=== PATIENT | male | born 1985 | race Caucasian/White ===

== ENCOUNTER 2022-04-14 16:04 | Inpatient (IN) | payer BC ==
[2022-04-14 20:06] LABS: Appearance,Urine Clear (Clear); Bilirubin,Urine Negative (Negative); Blood,Urine Negative (Negative); Color,Urine Yellow; Glucose,Urine (UA) Negative (Negative); Ketones,Urine Negative (Negative); Leukocyte Esterase,Urine Negative (Negative); Nitrite,Urine Negative (Negative); Protein,Urine Negative (Negative); Specific Gravity,Urine 1.013 (1.001-1.035); Urobilinogen,Urine <2.0 mg/dL (<2.0)
[2022-04-14 20:07] LABS: Basophils # (A) 0.1 k/uL (0-0.2); Basophils % (A) 0 %; Eosinophils # (A) 0.2 k/uL (0-0.7); Eosinophils % (A) 1 %; HCT 50.3 % (39.0-53.0); HGB 17.4 gm/dL (13.0-17.5); Lymphocytes # (A) 2.9 k/uL (1.0-4.8); Lymphocytes % (A) 18 %; MCH 34.1 pg (25.0-35.0); MCHC 34.6 g/dL (31.0-37.0); MCV 98.5 fL (80.0-100.0); Mean Platelet Volume 7.4; Monocytes # (A) 0.5 k/uL (0-1.0); Monocytes % (A) 3 %; Neutrophils # (A) 12.4 k/uL (1.3-7.7); Neutrophils % (A) 76 %; Platelet Count 330 k/uL (150-450); RDW 12.5 % (11.5-15.5); WBC 16.2 k/uL (3.8-10.6)
[2022-04-14 20:15] LABS: Amphetamine Screen,Urine Not Detected (NotDetected); Barbiturate Screen,Urine Not Detected (NotDetected); Benzodiazepines Screen,Urine Not Detected (NotDetected); Cocaine Screen,Urine Not Detected (NotDetected); Methadone Screen, Urine Not Detected (NotDetected); Opiate Screen,Urine Not Detected (NotDetected); Oxycodone Screen, Urine Not Detected (NotDetected); Phencyclidine Screen,Urine Not Detected (NotDetected); Tricyclic Antidepressant,Urine Not Detected (NotDetected); Urn Cannabinoid Scrn Detected (NotDetected)
[2022-04-14 20:19] LABS: Albumin 5.4 g/dL (3.5-5.0); Potassium 4.3 mmol/L (3.5-5.1); Total Bilirubin 1.5 mg/dL (0.2-1.3); Total Protein 8.8 g/dL (6.3-8.2)
--- NOTE | 2022-04-14 20:21 | ED ---
Psych HPI - General Source: patient Mode of arrival: ambulatory <Catherine Mao - Last Filed: 04/15/22 00:54> <Rudy Adam - Last Filed: 04/15/22 04:45> - General Chief Complaint: Psychiatric Symptoms Stated Complaint: Petition Time Seen by Provider: 04/14/22 19:10 - History of Present Illness Initial Comments: 36-year-old male with past medical history of bipolar disorder, schizophrenia, PTSD who presents to the emergency department for depression and suicidal ideations. Police were called to the patient's house where he was reporting that he was extremely depressed because his was found cheating on him last night. He told police that he was depressed and suicidal. Police were highly considered as the patient is a therefore brought him into the emergency room for evaluation. Patient is agreeable that he made these comments. He denies any drug or alcohol use. He is a patient with [facility] and follows with them every Friday. He has medications that he is supposed to take however he reports he only takes them when he needs them. States he has not taken them in several weeks. He denies attempting to harm himself. No homicidal ideations. No hallucinations. No other alleviating, precipitating or modifying factors (Catherine Mao) - Related Data Allergies Allergy/AdvReac Type Severity Reaction Status Date / Time morphine Allergy Unknown Verified 04/14/22 16:43 Review of Systems ROS Other: All systems not noted in ROS Statement are negative. <Catherine Mao - Last Filed: 04/15/22 00:54> ROS Other: All systems not noted in ROS Statement are negative. <Rudy Adam - Last Filed: 04/15/22 04:45> ROS Statement: Those systems with pertinent positive or pertinent negative responses have been documented in the HPI. Past Medical History Additional Past Medical History / Comment(s): vertigo History of Any Multi-Drug Resistant Organisms: None Reported Additional Past Surgical History / Comment(s): finger surgery Past Psychological History: Depression, PTSD Smoking Status: Never smoker Past Alcohol Use History: None Reported Past Drug Use History: None Reported <Catherine Mao - Last Filed: 04/15/22 00:54> General Exam Limitations: no limitations General appearance: alert, in no apparent distress Head exam: Present: atraumatic, normocephalic, normal inspection Eye exam: Present: normal appearance, PERRL, EOMI. Absent: scleral icterus, conjunctival injection, periorbital swelling ENT exam: Present: normal exam, mucous membranes moist Neck exam: Present: normal inspection. Absent: tenderness, meningismus, lymphad enopathy Respiratory exam: Present: normal lung sounds bilaterally. Absent: respiratory distress, wheezes, rales, rhonchi, stridor Cardiovascular Exam: Present: regular rate, normal rhythm, normal heart sounds. Absent: systolic murmur, diastolic murmur, rubs, gallop, clicks GI/Abdominal exam: Present: soft, normal bowel sounds. Absent: distended, tenderness, guarding, rebound, rigid Extremities exam: Present: normal inspection, full ROM, normal capillary refill. Absent: tenderness, pedal edema, joint swelling, calf tenderness Back exam: Present: normal inspection Neurological exam: Present: alert, oriented X3, CN II-XII intact Psychiatric exam: Present: depressed Skin exam: Present: warm, dry, intact, normal color. Absent: rash <Catherine Mao - Last Filed: 04/15/22 00:54> Course Vital Signs 04/14/22 04/15/22 04/15/22 16:35 03:26 04:15 Temperature 97.7 F 97.7 F Pulse Rate 86 86 70 Respiratory 16 20 20 Rate Blood Pressure 188/110 141/111 145/86 O2 Sat by Pulse 96 96 96 Oximetry Medical Decision Making - Lab Data Result diagrams: 04/14/22 20:02 04/14/22 20:02 <Catherine Mao - Last Filed: 04/15/22 00:54> - Lab Data Result diagrams: 04/14/22 20:02 04/14/22 20:02 - EKG Data -: EKG Interpreted by In <Rudy Adam - Last Filed: 04/15/22 04:45> - Medical Decision Making Upon arrival, patient placed into room 16. Thorough history and physical exam was performed. Patient does admit to suicidal ideations. He is accompanied by police and is petitions. Because he is a his labs are drawn. Spoke with EPS. Patient will likely be admitted for psychiatric services (Catherine Mao) Patient will be going to the [facility] after evaluation by EPS for inpatient psychiatry. Certification was completed by myself. (Rudy Adam) - Lab Data Lab Results 04/14/22 04/14/22 04/14/22 Range/Units 20:02 20:02 20:02 WBC 16.2 H (3.8-10.6) k/uL RBC 5.10 (4.30-5.90) m/uL Hgb 17.4 (13.0-17.5) gm/dL Hct 50.3 (39.0-53.0) % MCV 98.5 (80.0-100.0) fL MCH 34.1 (25.0-35.0) pg MCHC 34.6 (31.0-37.0) g/dL RDW 12.5 (11.5-15.5) % Plt Count 330 (150-450) k/uL MPV 7.4 Neutrophils % 76 % Lymphocytes % 18 % Monocytes % 3 % Eosinophils % 1 % Basophils % 0 % Neutrophils # 12.4 H (1.3-7.7) k/uL Lymphocytes # 2.9 (1.0-4.8) k/uL Monocytes # 0.5 (0-1.0) k/uL Eosinophils # 0.2 (0-0.7) k/uL Basophils # 0.1 (0-0.2) k/uL Sodium 140 (137-145) mmol/L Potassium 4.3 (3.5-5.1) mmol/L Chloride 100 (98-107) mmol/L Carbon Dioxide 27 (22-30) mmol/L Anion Gap 13 mmol/L BUN 17 (9-20) mg/dL Creatinine 1.22 (0.66-1.25) mg/dL Est GFR (CKD-EPI)AfAm 87 (>60 ml/min/1.73 sqM) Est GFR (CKD-EPI)NonAf 75 (>60 ml/min/1.73 sqM) Glucose 107 H (74-99) mg/dL Calcium 10.0 (8.4-10.2) mg/dL Total Bilirubin 1.5 H (0.2-1.3) mg/dL AST 35 (17-59) U/L ALT 35 (4-49) U/L Alkaline Phosphatase 101 (38-126) U/L Total Protein 8.8 H (6.3-8.2) g/dL Albumin 5.4 H (3.5-5.0) g/dL Urine Color Yellow Urine Appearance Clear (Clear) Urine pH 6.0 (5.0-8.0) Ur Specific [place] 1.013 (1.001-1.035) Urine Protein Negative (Negative) Urine Glucose (UA) Negative (Negative) Urine Ketones Negative (Negative) Urine Blood Negative (Negative) Urine Nitrite Negative (Negative) Urine Bilirubin Negative (Negative) Urine Urobilinogen <2.0 (<2.0) mg/dL Ur Leukocyte Esterase Negative (Negative) Urine Opiates Screen Not Detected (NotDetected) Ur Oxycodone Screen Not Detected (NotDetected) Urine Methadone Screen Not Detected (NotDetected) Ur Propoxyphene Screen Not Detected (NotDetected) Ur Barbiturates Screen Not Detected (NotDetected) U Tricyclic Antidepress Not Detected (NotDetected) Ur Phencyclidine Scrn Not Detected (NotDetected) Ur Amphetamines Screen Not Detected (NotDetected) U Methamphetamines Scrn Not Detected (NotDetected) U Benzodiazepines Scrn Not Detected (NotDetected) Urine Cocaine Screen Not Detected (NotDetected) U Marijuana (THC) Screen Detected H (NotDetected) Coronavirus (PCR) (Not Detectd) 04/14/22 Range/Units 20:12 WBC (3.8-10.6) k/uL RBC (4.30-5.90) m/uL Hgb (13.0-17.5) gm/dL Hct (39.0-53.0) % MCV (80.0-100.0) fL MCH (25.0-35.0) pg MCHC (31.0-37.0) g/dL RDW (11.5-15.5) % Plt Count (150-450) k/uL MPV Neutrophils % % Lymphocytes % % Monocytes % % Eosinophils % % Basophils % % Neutrophils # (1.3-7.7) k/uL Lymphocytes # (1.0-4.8) k/uL Monocytes # (0-1.0) k/uL Eosinophils # (0-0.7) k/uL Basophils # (0-0.2) k/uL Sodium (137-145) mmol/L Potassium (3.5-5.1) mmol/L Chloride (98-107) mmol/L Carbon Dioxide (22-30) mmol/L Anion Gap mmol/L BUN (9-20) mg/dL Creatinine (0.66-1.25) mg/dL Est GFR (CKD-EPI)AfAm (>60 ml/min/1.73 sqM) Est GFR (CKD-EPI)NonAf (>60 ml/min/1.73 sqM) Glucose (74-99) mg/dL Calcium (8.4-10.2) mg/dL Total Bilirubin (0.2-1.3) mg/dL AST (17-59) U/L ALT (4-49) U/L Alkaline Phosphatase (38-126) U/L Total Protein (6.3-8.2) g/dL Albumin (3.5-5.0) g/dL Urine Color Urine Appearance (Clear) Urine pH (5.0-8.0) Ur Specific [place] (1.001-1.035) Urine Protein (Negative) Urine Glucose (UA) (Negative) Urine Ketones (Negative) Urine Blood (Negative) Urine Nitrite (Negative) Urine Bilirubin (Negative) Urine Urobilinogen (<2.0) mg/dL Ur Leukocyte Esterase (Negative) Urine Opiates Screen (NotDetected) Ur Oxycodone Screen (NotDetected) Urine Methadone Screen (NotDetected) Ur Propoxyphene Screen (NotDetected) Ur Barbiturates Screen (NotDetected) U Tricyclic Antidepress (NotDetected) Ur Phencyclidine Scrn (NotDetected) Ur Amphetamines Screen (NotDetected) U Methamphetamines Scrn (NotDetected) U Benzodiazepines Scrn (NotDetected) Urine Cocaine Screen (NotDetected) U Marijuana (THC) Screen (NotDetected) Coronavirus (PCR) Not Detected (Not Detectd) - EKG Data EKG Comments: 12-lead Electrocardiogram Interpretation Note EKG was reviewed and interpreted by myself. 12-lead ECG performed at 0438 is interpreted by me as revealing normal sinus rhythm at a rate of 64 beats per minute. [place] is normal. MA interval is 195 ms, QRS duration is 101 ms, QTc is 394 ms.. There were no ST or T wave abnormalities to suggest myocardial ischemia or injury. R wave progression across the precordium was satisfactory. By my interpretation this EKG is non-diagnostic for acute ischemia. (Rudy Adam) Disposition <Catherine Mao - Last Filed: 04/15/22 00:54> Is patient prescribed a controlled substance at d/c from ED?: No <Rudy Adam - Last Filed: 04/15/22 04:45> Clinical Impression: Suicidal ideation, Depression Disposition: TRANSFER TO PSYCH HOSP/UNIT Condition: Stable Referrals: None,Stated [Primary Care Provider] - 1-2 days
--- NOTE | 2022-04-15 00:45 | XR ---
EXAMINATION TYPE: XR chest 2V DATE OF EXAM: 04/15/2022 COMPARISON: NONE HISTORY: Chest pain TECHNIQUE: 2 views FINDINGS: Heart and mediastinum are normal. Lungs are clear. Diaphragm is normal. Bony thorax appears normal. IMPRESSION: Normal chest.
[2022-04-15] MEDS ORDERED: ACETAMINOPHEN TAB 500 MG TAB PO PRN (18:24)
[2022-04-15] MEDS ORDERED: MECLIZINE 25 MG TAB PO PRN (18:24)
[2022-04-15] MEDS ORDERED: MAGNESIUM HYDROXIDE 2,400 MG/10 ML CUP PO PRN (18:24)
[2022-04-15] MEDS ORDERED: MAG HYDROX/AL HYDROX/SIMETH 30 ML CUP PO PRN (18:24)
[2022-04-15] MEDS ORDERED: LORazepam 2 MG/ML INJ IM PRN (18:31)
[2022-04-15] MEDS ORDERED: chlorproMAZINE 25 MG/ML 2 ML AMP IM PRN (18:31)
[2022-04-15] MEDS ORDERED: chlorproMAZINE 25 MG TAB PO PRN (18:31)
[2022-04-15] MEDS: LORazepam 1 MG TAB PO PRN (20:14)
[2022-04-15] MEDS: QUEtiapine 100 MG TAB PO SCH (21:18)
[2022-04-16] MEDS: CITALOPRAM HYDROBROMIDE 10 MG TAB PO SCH (08:33)
[2022-04-16] MEDS: QUEtiapine 100 MG TAB PO SCH (20:56)
--- NOTE | 2022-04-17 07:04 | P.MDCNMH ---
History of Present Illness H&P Date: 04/16/22 Chief Complaint: Depression and suicidal ideation 36-year-old male no significant past medical history Patient brought into the hospital by police due to depression and suicidal ideation after finding out that his was cheating on him. Patient otherwise denies any fevers or chills denies any coughing or upper respiratory infection symptoms denies any chest pain or shortness of breath denies any abdominal pain nausea vomiting or changes in his bowel or urinary habits denies any GI bleeding denies any focal neuro deficits. Patient denies tobacco smoking, illicit drugs, or alcohol Review of Systems Pertinent positives as noted in HPI. All other systems were reviewed and are negative Past Medical History Additional Past Medical History / Comment(s): vertigo History of Any Multi-Drug Resistant Organisms: None Reported Additional Past Surgical History / Comment(s): finger surgery Past Psychological History: Depression, PTSD Smoking Status: Never smoker Past Alcohol Use History: None Reported Past Drug Use History: None Reported - Past Family History Family Additional Family Medical History / Comment(s): History of lung cancer in his father Medications and Allergies Home Medications Medication Instructions Recorded Confirmed Type Acetaminophen Tab [Tylenol Tab] 1,000 mg PO Q6HR PRN 04/15/22 04/15/22 History Citalopram Hydrobromide 10 mg PO DAILY 04/15/22 04/15/22 History [Citalopram HBr] Meclizine [Antivert] 25 mg PO TID PRN 04/15/22 04/15/22 History QUEtiapine [SEROquel] 100 mg PO HS 04/15/22 04/15/22 History Allergies Allergy/AdvReac Type Severity Reaction Status Date / Time morphine Allergy Unknown Verified 04/15/22 12:09 Physical Exam Constitutional: No acute distress, conversant, pleasant Eyes: Anicteric sclerae, moist conjunctiva, Pupils equal round reactive to light ENMT: NC/AT Oropharynx clear, no erythema, or exudates Neck: Supple, FROM, no masses, or JVD No carotid bruits No thyromegaly Lungs: Clear to auscultation Clear to percussion Normal respiratory effort, no accessory muscle use Cardiovascular: Heart regular in rate and rhythm, No murmurs, gallops, or rubs No peripheral edema Abdominal: Soft Nontender, no guarding, rebound or rigidity Abdomen moving with respiration Normoactive bowel sounds No hepatomegaly, No splenomegaly No palpable mass No abdominal wall hernia noted Skin: Normal temperature, tone, texture, turgor No induration No subcutaneous nodules No rash, lesions No ulcers Extremities: No digital cyanosis No clubbing Pedal pulses intact and symmetrical Radial pulses intact and symmetrical No calf tenderness Psychiatric: Alert and oriented to person, place and time Depressed affect fair judgement Neuro Muscles Strength 5/5 in all 4 extremities Sensation to light touch grossly present throughout Cranial nerves II-XII grossly intact No focal sensory deficits Lymphatics: no palpable cervical or supraclavicular , or inguinal lymph nodes Cranial Nerve Examination - Cranial Nerves Cranial Nerve II- Optic: Intact Cranial Nerve III- Oculomotor: Intact Cranial Nerve IV- Trochlear: Intact Cranial Nerve V- Trigeminal: Intact Cranial Nerve - Abducens: Intact Cranial Nerve VII- Facial: Intact Cranial Nerve VIII- Auditory: Intact Cranial Nerve IX- Glossopharyngeal: Intact Cranial Nerve X- Vagus: Intact Cranial Nerve XI- Accessory: Intact Cranial Nerve XII- Hypoglossal: Intact Results CBC & Chem 7: 04/14/22 20:02 04/14/22 20:02 Assessment and Plan Assessment: Depression suicidal ideation Management per psych Leukocytosis No identifiable source of infection Monitor vital signs Chest x-ray no acute pathology EKG normal sinus rhythm Patient stable from medical standpoint Labs reviewed Thank you for allowing us to participate in the care of this patient. We will follow peripherally. Do not hesitate to contact us with questions. Someone can be reached from the [facility] hospitalist group at all hours of the day at [phone].
[2022-04-17 07:15] VITALS: BP 111/60; PULSE 79; RESP 16; TEMP 97
[2022-04-17] MEDS: CITALOPRAM HYDROBROMIDE 10 MG TAB PO SCH (08:26)
--- NOTE | 2022-04-17 11:51 | P.HP ---
Psychiatric H&P - . H&P Date: 04/17/22 History & Physical: Allergies Allergy/AdvReac Type Severity Reaction Status Date / Time morphine Allergy Unknown Verified 04/15/22 12:09 Vital Signs Temp 97 F L 04/17/22 06:59 Pulse 79 04/17/22 06:59 Resp 16 04/17/22 06:59 BP 111/60 04/17/22 06:59 Pulse Ox 98 04/17/22 06:59 FiO2 Laboratory Last Values WBC 16.2 k/uL (3.8-10.6) H 04/14/22 20:02 RBC 5.10 m/uL (4.30-5.90) 04/14/22 20:02 Hgb 17.4 gm/dL (13.0-17.5) 04/14/22 20:02 Hct 50.3 % (39.0-53.0) 04/14/22 20:02 MCV 98.5 fL (80.0-100.0) 04/14/22 20:02 MCH 34.1 pg (25.0-35.0) 04/14/22 20:02 MCHC 34.6 g/dL (31.0-37.0) 04/14/22 20:02 RDW 12.5 % (11.5-15.5) 04/14/22 20:02 Plt Count 330 k/uL (150-450) 04/14/22 20:02 MPV 7.4 04/14/22 20:02 Neutrophils % 76 % 04/14/22 20:02 Lymphocytes % 18 % 04/14/22 20:02 Monocytes % 3 % 04/14/22 20:02 Eosinophils % 1 % 04/14/22 20:02 Basophils % 0 % 04/14/22 20:02 Neutrophils # 12.4 k/uL (1.3-7.7) H 04/14/22 20:02 Lymphocytes # 2.9 k/uL (1.0-4.8) 04/14/22 20:02 Monocytes # 0.5 k/uL (0-1.0) 04/14/22 20:02 Eosinophils # 0.2 k/uL (0-0.7) 04/14/22 20:02 Basophils # 0.1 k/uL (0-0.2) 04/14/22 20:02 Sodium 140 mmol/L (137-145) 04/14/22 20:02 Potassium 4.3 mmol/L (3.5-5.1) 04/14/22 20:02 Chloride 100 mmol/L (98-107) 04/14/22 20:02 Carbon Dioxide 27 mmol/L (22-30) 04/14/22 20:02 Anion Gap 13 mmol/L 04/14/22 20:02 BUN 17 mg/dL (9-20) 04/14/22 20:02 Creatinine 1.22 mg/dL (0.66-1.25) 04/14/22 20:02 Est GFR (CKD-EPI)AfAm 87 (>60 ml/min/1.73 sqM) 04/14/22 20:02 Est GFR (CKD-EPI)NonAf 75 (>60 ml/min/1.73 sqM) 04/14/22 20:02 Glucose 107 mg/dL (74-99) H 04/14/22 20:02 Calcium 10.0 mg/dL (8.4-10.2) 04/14/22 20:02 Total Bilirubin 1.5 mg/dL (0.2-1.3) H 04/14/22 20:02 AST 35 U/L (17-59) 04/14/22 20:02 ALT 35 U/L (4-49) 04/14/22 20:02 Alkaline Phosphatase 101 U/L (38-126) 04/14/22 20:02 Total Protein 8.8 g/dL (6.3-8.2) H 04/14/22 20:02 Albumin 5.4 g/dL (3.5-5.0) H 04/14/22 20:02 Urine Color Yellow 04/14/22 20:02 Urine Appearance Clear (Clear) 04/14/22 20:02 Urine pH 6.0 (5.0-8.0) 04/14/22 20:02 Ur Specific [place] 1.013 (1.001-1.035) 04/14/22 20:02 Urine Protein Negative (Negative) 04/14/22 20:02 Urine Glucose (UA) Negative (Negative) 04/14/22 20: Urine Ketones Negative (Negative) 04/14/22 20: Urine Blood Negative (Negative) 04/14/22 20:02 Urine Nitrite Negative (Negative) 04/14/22 20:02 Urine Bilirubin Negative (Negative) 04/14/22 20:02 Urine Urobilinogen <2.0 mg/dL (<2.0) 04/14/22 20:02 Ur Leukocyte Esterase Negative (Negative) 04/14/22 20:02 Urine Opiates Screen Not Detected (NotDetected) 04/14/22 20:02 Ur Oxycodone Screen Not Detected (NotDetected) 04/14/22 20:02 Urine Methadone Screen Not Detected (NotDetected) 04/14/22 20:02 Ur Propoxyphene Screen Not Detected (NotDetected) 04/14/22 20:02 Ur Barbiturates Screen Not Detected (NotDetected) 04/14/22 20:02 U Tricyclic Antidepress Not Detected (NotDetected) 04/14/22 20:02 Ur Phencyclidine Scrn Not Detected (NotDetected) 04/14/22 20:02 Ur Amphetamines Screen Not Detected (NotDetected) 04/14/22 20:02 U Methamphetamines Scrn Not Detected (NotDetected) 04/14/22 20:02 U Benzodiazepines Scrn Not Detected (NotDetected) 04/14/22 20:02 Urine Cocaine Screen Not Detected (NotDetected) 04/14/22 20:02 U Marijuana (THC) Screen Detected (NotDetected) H 04/14/22 20:02 Serum Alcohol <10 mg/dL 04/15/22 04:52 Coronavirus (PCR) Not Detected (Not Detectd) 04/14/22 20:12 04/17/22 11:50 IDENTIFYING DATA: Patient is a , self-employed, 36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 HPI: Patient presented to the hospital on 04/14/2022, brought into the hospital by police for psychiatric evaluation. The patient is a disabled of the [place] war. He was honorably discharged from the [facility] after 2 chores and [place]. The patient was brought in by police after concerns for suicidal ideation. The patient recently found his being unfaithful to him with another man in the [place] on his property. He reports that he was very upset at this and admitted that he wanted to kill them as well as wanting to kill himself. As per EPS report, the patient was also reportedly nonadherent with his medications and appointments. Upon admission to the psychiatric unit, the patient is agreeable with treatment. He does report that he has been extremely upset with the recent infidelity cau sed by his . However, the patient is vehemently denying any suicidal or homicidal ideation. He is agreeable with the inpatient psychiatric admission and is willing to start Seroquel. He does report prior attempts at suicide more than 10 years ago. He states that he has been following with his [facility] appointments and that this has been beneficial for him. He is denying any psychiatric pathology at this time aside from feeling upset, tearful, and anxious since catching his cheating on him on 04/13/2022. He reports that prior to this, the only issue sees had was related to his PTSD with feelings of hypervigilance, and arousal, and reexperiencing phenomenon. He reports no significant history of auditory or visual hallucinations. He is denying any paranoia or other delusions. He signed himself voluntarily onto the psychiatric unit. PAST PSYCHIATRIC HISTORY: Patient has a significant history of bipolar disorder and PTSD. The patient states that he has only been on Celexa and Seroquel. The patient reports that this is his first inpatient psychiatric admission. Patient follows with [facility]. He reports one prior attempt at suicide more than 10 years ago. PMH: Additional Past Medical History / Comment(s): vertigo History of Any Multi-Drug Resistant Organisms: None Reported Additional Past Surgical History / Comment(s): finger surgery Past Psychological History: Depression, PTSD Smoking Status: Never smoker Past Alcohol Use History: None Reported Past Drug Use History: None Reported ALLERGIES: Morphine CHEMICAL DEPENDENCY HISTORY: Patient denies any alcohol, marijuana, or illicit drug use. He denies any tobacco use. FAMILY PSYCHIATRIC/SUBSTANCE USE HISTORY: No reported family psychiatric history substance use history. SOCIAL HISTORY: Patient has been to his Catherine for 7 years. They have 2 sons together named Malick who is 9 and Khoi who is 5. He was honorably discharged from the [employer] in 2008. He served 2 [employer] and [place]. He saw active-duty combat. He does have a history of traumatic brain injury. He is currently self-employed as a hand crafters. He reports a Yazidism pop. MENTAL STATUS EXAM: General Appearance: Patient appears to be stated age is alert, directable, and attempts to cooperate. Patient appears to have fair hygiene and grooming. Behavior: Patient is seated without any agitated behavior. Patient is tearful throughout interview. Speech: Patient's speech is fluent and nonpressured. Mood/Affect: Patient reports their mood is upset, affect is congruent and tearful Suicidality/Homicidality: Patient is denying any suicidal or homicidal ideation. Perceptions: Patient denies any visual hallucinations and denies any auditory hallucinations Though content/process: There is no evidence of any delusional thought content and thought process is linear and goal-directed. Memory and concentration: AOX3, grossly intact for the purposes of this session. Can spell "WORLD" backwards Judgment and insight: Fair STRENGTHS/WEAKNESSES: Strength is that the patient is resilient, has significant supports, does not engage in any substance abuse, and has a duty to his children and a Yazidism pop. Weakness is that the patient has a history of traumatic brain injury and PTSD. Acute stressor of being unfaithful. INTELLECT: average IMPRESSIONS: Adjustment disorder with mixed disturbance of emotion and conduct Posttraumatic stress disorder Bipolar 1 disorder PLAN: -Patient is admitted under voluntary status to MHU for stabilization of psychiatric symptoms and safety. Patient signed adult voluntary form and medication consent and is placed in patient's chart. -Medications : Will start patient on Celexa 10 mg by mouth daily for depression/anxiety Seroquel 100 mg by mouth at bedtime for mood stabilization -Ativan and Haldol PRN for agitation/aggression -Started thiamine, MVM for etoh use -Patient was informed of the risks, benefits and side effects of the medication and patient verbally consented to taking the medications. Patient signed med consent form and was placed in chart. -Internal Medicine consult to perform medical evaluation and physical. -SW on board for discharge planning. Encourage patient to participate in groups to work on coping skills. 04/17/22 11:50
--- NOTE | 2022-04-17 11:58 | P.DS ---
Providers Date of admission: 04/15/22 16:59 Expected date of discharge: 04/17/22 Attending physician: Wagner Lind MD Consults: 04/15/22 18:24 Consult Physician Routine Consulting Provider: Bright Yepez Consult Reason/Comments: H&P and medical Do you want consulting provider notified?: Yes Primary care physician: Stated None - Discharge Diagnosis(es) (1) Adjustment disorder with mixed disturbance of emotions and conduct Current Visit: Yes Status: Acute Priority: High (2) PTSD (post-traumatic stress disorder) Current Visit: Yes Status: Chronic Priority: High (3) Bipolar 1 disorder Current Visit: No Status: Chronic Priority: Medium Hospital Course: Admission HPI: Patient is a , self-employed, 36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 Patient presented to the hospital on 04/14/2022, brought into the hospital by police for psychiatric evaluation. The patient is a disabled of the [place] war. He was honorably discharged from the [facility] after 2 chores and [place]. The patient was brought in by police after concerns for suicidal ideation. The patient recently found his being unfaithful to him with another man in the heart on his property. He reports that he was very upset at this and admitted that he wanted to kill them as well as wanting to kill himself. As per EPS report, the patient was also reportedly nonadherent with his medications and appointments. Upon admission to the psychiatric unit, the patient is agreeable with treatment. He does report that he has been extremely upset with the recent infidelity caused by his . However, the patient is vehemently denying any suicidal or homicidal ideation. He is agreeable with the inpatient psychiatric admission and is willing to start Seroquel. He does report prior attempts at suicide more than 10 years ago. He states that he has been following with his [facility] appointments and that this has been beneficial for him. He is denying any psychiatric pathology at this time aside from feeling upset, tearful, and anxious since catching his cheating on him on 04/13/2022. He reports that prior to this, the only issue sees had was related to his PTSD with feelings of hypervigilance, and arousal, and reexperiencing phenomenon. He reports no significant history of auditory or visual hallucinations. He is denying any paranoia or other delusions. He signed himself voluntarily onto the psychiatric unit. Patient has a significant history of bipolar disorder and PTSD. The patient states that he has only been on Celexa and Seroquel. The patient reports that this is his first inpatient psychiatric admission. Patient follows with [facility]. He reports one prior attempt at suicide more than 10 years ago. Hospital course: Upon admission to the unit patient was initially presenting as tearful and emotional however future and goal oriented and was vehemently denying suicidal or homicidal ideation. Patient was however directable and agreeable to commence treatment. Patient got along well with other patients on the unit and followed unit protocol. Patient was compliant with the medications and denied any side effects throughout hospital course. Patient was started on Celexa and Seroquel for PTSD and bipolar disorder. Patient spoke of his stressors and engaged in therapy both group and individual. Patient was also seen by medical team for history and physical exam. Over the course the hospitalization, the patient displayed significant improvement in regards to his acute stress, anxiety, and mood. He became more future and goal oriented and was able to appropriately safety plan with this provider and with staff. He was active in groups and strongly active in individual and milieu therapies. He has been adherent with his medication and reported no symptoms and side effects. On the day of discharge, the patient is not reporting any suicidal or homicidal ideation, intention, and/or plan. He lists reasons to live and not hurt anyone which would be his duty to his children, his [employer], and his oath as a [employer] to protect. The patient does admit to access to firearms and hunting equipment however states that he will have his father take care of these so that he would not be immediately around him. He is agreeable with safety planning. The patient was also counseled on utilizing crisis numbers when necessary. The patient does not have a significant history substance use however was counseled on abstaining from all substances and limiting his marijuana use. Prior to discharge, a safety plan was agreed upon and arranged by the social insurance specialist and this provider with the patient and his outpatient provider. The patient states that he does not want to be around his . This is to ensure he has his anger under control and avoid any hyperreactivity. Mental status exam: General Appearance: Patient appears to be stated age is alert, pleasant, and cooperative. Patient is in no acute distress and has fair hygiene and grooming Behavior: Patient is calmly seated without any agitated behavior. Speech: Patient's speech is fluent and nonpressured. Mood/Affect: Patient reports their mood is "much better", affect is congruent a nd euthymic to bright. Suicidality/Homicidality: Patient denies having any suicidal or homicidal ideation intent or plan. Perceptions: Patient denies any auditory or visual hallucinations. Though content/process: There is no evidence of any delusional thought content and thought process is linear and goal-directed. Patient is future and goal oriented. Memory and concentration: AOX3, grossly intact for the purposes of this session. Can spell "WORLD" backwards correctly. Judgment and insight: Improved with guarded prognosis Impression: Adjustment disorder with mixed disturbance of emotion and conduct Posttraumatic stress disorder Bipolar 1 disorder Plan: -Continue with discharge today as patient has improved and stabilized psychiatrically and is not currently an imminent threat to himself and/or others. Patient will remain at chronically elevated risk for harm to self and/or others due to his history of traumatic brain injury, PTSD, and history of colleagues who have committed suicide. The patient has numerous protective factors including his [employer], his duty to his children, and his active involvement in outpatient services. -Continue medications: Celexa 10 mg by mouth daily for depression/anxiety Seroquel 100 mg by mouth at bedtime for mood stabilization Ativan 2 mg by mouth twice a day when necessary for anxiety for 14 days for acute stress -Patient was counseled on the need for medication compliance and appropriate follow-up at mental health and also primary care for medical issues. Patient verbalized understanding and agreed. -Social work to arrange for and conduct family meeting to ensure safety upon discharge and answer any questions/concerns. Social work also to arrange for patients follow up appointments with [facility] for psychiatric care along with follow up with primary care provider. -Patient counseled on abstaining from recreational drugs and marijuana and alcohol. Was informed/educated on the adverse effects on their physical and mental health. Patient verbally agreed and understood. -Patient was instructed to return to the hospital or seek immediate medical care if their psychiatric or medical symptoms do worsen or reoccur. -Psychoeducation and supportive therapy provided to patient. Risks and benefits of pharmacological treatment versus the risks and benefits of nontreatment weight and discussed. Informed consent discussion held. Common side effects of psychotropics discussed such as, but not limited to headache, GI disturbance, sexual dysfunction, movement disorders, sedation, and orthostatic hypotension. Life threatening and blackbox warnings of prescribed medications also discussed. Potential risks of operating a vehicle or heavy machinery discussed with patient at length. Advised on importance of compliance and a reliable and responsible manner. Patient advised to review FDA consumer labeling of all medications prior to taking. Patient verbalized understanding of potential risks, and agrees with current treatment plan. Patient advised to medically contact physician/emergency personnel if any acute changes in condition occur. Vital Signs Temp 97 F L 04/17/22 06:59 Pulse 79 04/17/22 06:59 Resp 16 04/17/22 06:59 BP 111/60 04/17/22 06:59 Pulse Ox 98 04/17/22 06:59 FiO2 Laboratory Results WBC 16.2 k/uL (3.8-10.6) H 04/14/22 20:02 RBC 5.10 m/uL (4.30-5.90) 04/14/22 20:02 Hgb 17.4 gm/dL (13.0-17.5) 04/14/22 20:02 Hct 50.3 % (39.0-53.0) 04/14/22 20: MCV 98.5 fL (80.0-100.0) 04/14/22 20:02 MCH 34.1 pg (25.0-35.0) 04/14/22 20: MCHC 34.6 g/dL (31.0-37.0) 04/14/22 20:02 RDW 12.5 % (11.5-15.5) 04/14/22 20:02 Plt Count 330 k/uL (150-450) 04/14/22 20:02 MPV 7.4 04/14/22 20:02 Neutrophils % 76 % 04/14/22 20:02 Lymphocytes % 18 % 04/14/22 20:02 Monocytes % 3 % 04/14/22 20:02 Eosinophils % 1 % 04/14/22 20:02 Basophils % 0 % 04/14/22 20:02 Neutrophils # 12.4 k/uL (1.3-7.7) H 04/14/22 20:02 Lymphocytes # 2.9 k/uL (1.0-4.8) 04/14/22 20:02 Monocytes # 0.5 k/uL (0-1.0) 04/14/22 20:02 Eosinophils # 0.2 k/uL (0-0.7) 04/14/22 20:02 Basophils # 0.1 k/uL (0-0.2) 04/14/22 20:02 Sodium 140 mmol/L (137-145) 04/14/22 20:02 Potassium 4.3 mmol/L (3.5-5.1) 04/14/22 20:02 Chloride 100 mmol/L (98-107) 04/14/22 20:02 Carbon Dioxide 27 mmol/L (22-30) 04/14/22 20:02 Anion Gap 13 mmol/L 04/14/22 20:02 BUN 17 mg/dL (9-20) 04/14/22 20:02 Creatinine 1.22 mg/dL (0.66-1.25) 04/14/22 20:02 Est GFR (CKD-EPI)AfAm 87 (>60 ml/min/1.73 sqM) 04/14/22 20:02 Est GFR (CKD-EPI)NonAf 75 (>60 ml/min/1.73 sqM) 04/14/22 20:02 Glucose 107 mg/dL (74-99) H 04/14/22 20:02 Calcium 10.0 mg/dL (8.4-10.2) 04/14/22 20:02 Total Bilirubin 1.5 mg/dL (0.2-1.3) H 04/14/22 20:02 AST 35 U/L (17-59) 04/14/22 20:02 ALT 35 U/L (4-49) 04/14/22 20:02 Alkaline Phosphatase 101 U/L (38-126) 04/14/22 20:02 Total Protein 8.8 g/dL (6.3-8.2) H 04/14/22 20:02 Albumin 5.4 g/dL (3.5-5.0) H 04/14/22 20:02 Urine Color Yellow 04/14/22 20:02 Urine Appearance Clear (Clear) 04/14/22 20: Urine pH 6.0 (5.0-8.0) 04/14/22 20:02 Ur Specific [place] 1.013 (1.001-1.035) 04/14/22 20:02 Urine Protein Negative (Negative) 04/14/22 20:02 Urine Glucose (UA) Negative (Negative) 04/14/22 20:02 Urine Ketones Negative (Negative) 04/14/22 20:02 Urine Blood Negative (Negative) 04/14/22 20:02 Urine Nitrite Negative (Negative) 04/14/22 20:02 Urine Bilirubin Negative (Negative) 04/14/22 20:02 Urine Urobilinogen <2.0 mg/dL (<2.0) 04/14/22 20:02 Ur Leukocyte Esterase Negative (Negative) 04/14/22 20:02 Urine Opiates Screen Not Detected (NotDetected) 04/14/22 20:02 Ur Oxycodone Screen Not Detected (NotDetected) 04/14/22 20:02 Urine Methadone Screen Not Detected (NotDetected) 04/14/22 20:02 Ur Propoxyphene Screen Not Detected (NotDetected) 04/14/22 20:02 Ur Barbiturates Screen Not Detected (NotDetected) 04/14/22 20:02 U Tricyclic Antidepress Not Detected (NotDetected) 04/14/22 20:02 Ur Phencyclidine Scrn Not Detected (NotDetected) 04/14/22 20:02 Ur Amphetamines Screen Not Detected (NotDetected) 04/14/22 20:02 U Methamphetamines Scrn Not Detected (NotDetected) 04/14/22 20:02 U Benzodiazepines Scrn Not Detected (NotDetected) 04/14/22 20:02 Urine Cocaine Screen Not Detected (NotDetected) 04/14/22 20:02 U Marijuana (THC) Screen Detected (NotDetected) H 04/14/22 20:02 Serum Alcohol <10 mg/dL 04/15/22 04:52 Coronavirus (PCR) Not Detected (Not Detectd) 04/14/22 20:12 Allergies Allergy/AdvReac Type Severity Reaction Status Date / Time morphine Allergy Unknown Verified 04/15/22 12:09 Patient Condition at Discharge: Stable Plan - Discharge Summary New Discharge Prescriptions: New LORazepam [Ativan] 2 mg PO BID 14 Days tab Citalopram Hydrobromide [CeleXA] 10 mg PO DAILY 30 Days tab QUEtiapine [SEROquel] 100 mg PO HS 30 Days tab Continue Acetaminophen Tab [Tylenol] 1,000 mg PO Q6HR PRN PRN Reason: Pain Or Fever > 100.5 Meclizine [Antivert] 25 mg PO TID PRN PRN Reason: Vertigo Discontinued QUEtiapine [SEROquel] 100 mg PO HS Citalopram Hydrobromide [Citalopram HBr] 10 mg PO DAILY Discharge Medication List Acetaminophen Tab [Tylenol] 1,000 mg PO Q6HR PRN 04/15/22 [History] Meclizine [Antivert] 25 mg PO TID PRN 04/15/22 [History] Citalopram Hydrobromide [CeleXA] 10 mg PO DAILY 30 Days tab 04/17/22 [Rx] LORazepam [Ativan] 2 mg PO BID 14 Days tab 04/17/22 [Rx] QUEtiapine [SEROquel] 100 mg PO HS 30 Days tab 04/17/22 [Rx] Follow up Appointment(s)/Referral(s): [facility] [Outside] - 04/19/22 9:00 am (04-19 @ 09:00-10:00 with Patricio Foley 04/26 @ 09:00-10:00 with Rene Foley 05/01 @ 14:00-14:30 Mary Ruvalcaba ) [facility] [NON-STAFF] - 1 Week Patient Instructions/Handouts: Depression (DC) Activity/Diet/Wound Care/Special Instructions: Avoid the use of street drugs and alcohol. Take all prescriptions as prescribed. When you are in need of refills on your medications, please contact your medical provider and/or outpatient psychiatrist to have this done. Please go to scheduled outpatient appointment for aftercare treatment. If symptoms return or become worse, call the crisis line at and/or go to the nearest emergency room for evaluation. Discharge Disposition: HOME SELF-CARE
[2022-04-17] MEDS: LORazepam 1 MG TAB PO PRN (13:33)
== END 2022-04-17 14:03 | disposition home or self-care (01) | DRG 882 ==
LOC: EC 16:04 → 3MHU 04-15 16:59
PROVIDERS: ADMIT Psychiatry & Neurology Psychiatry; ATTEND Psychiatry & Neurology Psychiatry
DX: F43.25 Adjustment disorder with mixed disturbance of emotions and conduct (principal); R45.851 Suicidal ideations; F31.9 Bipolar disorder, unspecified; F43.10 Post-traumatic stress disorder, unspecified; G47.00 Insomnia, unspecified; Z79.899 Other long term (current) drug therapy; Z87.820 Personal history of traumatic brain injury; Z71.89 Other specified counseling; Z20.822 Contact with and (suspected) exposure to COVID-19; Z88.5 Allergy status to narcotic agent; Z91.128 Patient's intentional underdosing of medication regimen for other reason; Z91.19 Patient's noncompliance with other medical treatment and regimen; Z91.51 Personal history of suicidal behavior
CPT/HCPCS: 36415; 71046; 80053; 80306; 80320; 81003; 85025; 87635; 93005; 99285

== ENCOUNTER 2022-11-15 14:46 | Day surgery (SDC) | payer BC ==
[2022-11-12 11:22] VITALS: BMI 28.8
[~2022-11-15 14:46] MED LIST: LACTATED RINGERS 1,000 ML IV SCH
[2022-11-15 15:24] VITALS: RESP 16
[2022-11-15] MEDS ORDERED: PROPOFOL 10 MG/ML 20 ML VIAL IV ONE (15:28)
--- NOTE | 2022-11-15 16:00 | P.PCN ---
Date of Procedure: 11/15/22 Procedure(s) Performed: BRIEF HISTORY: Patient is a 36-year-old pleasant white male scheduled for an elective colonoscopy as a part of evaluation of intermittent rectal bleeding and possible rectal prolapse for the last several months duration.History of chronic constipation of many years PROCEDURE PERFORMED: Colonoscopy. PREOPERATIVE DIAGNOSIS: Intermittent rectal bleeding. IV sedation per Anesthesia. PROCEDURE: After informed consent was obtained, the patient, was brought into the endoscopy unit. IV sedation was administered by Anesthesia under continuous monitoring. Digital rectal examination was normal. Initially the Olympus CF-160 flexible video colonoscope was then inserted in the rectum, gradually advanced into the cecum without any difficulty. Careful examination was performed as the scope was gradually being withdrawn. Ileocecal valve and the appendiceal orifice were visualized and appeared normal. Prep was excellent. Mucosa of the cecum, ascending colon, transverse colon, descending colon, sigmoid colon, and rectum appeared normal. Retroflexion was performed in the rectum and grade 2 internal hemorrhoids were seen. No evidence of obvious rectal prolapse seen. The patient tolerated the procedure well. IMPRESSION: Normal-appearing colon from rectum to cecum with no evidence of colitis or colorectal neoplasia Grade 2 internal hemorrhoids No obvious rectal prolapse seen RECOMMENDATIONS: Findings of this examination were discussed with the patient as well as his family. He was advised to be a high-fiber diet, take fiber supplements a regular basis and use osmotic laxatives as needed.. Recommend surgical consultation for evaluation of possible rectal prolapse.
[2022-11-15 16:23] VITALS: BP 118/78; PULSE 81
== END 2022-11-15 16:40 | disposition home or self-care (01) ==
LOC: ORWHC2ENDO 14:46
PROVIDERS: ATTEND Internal Medicine Gastroenterology
DX: K64.1 Second degree hemorrhoids (principal); I10 Essential (primary) hypertension; F12.90 Cannabis use, unspecified, uncomplicated; Z79.899 Other long term (current) drug therapy; Z88.8 Allergy status to other drugs, medicaments and biological substances
CPT/HCPCS: 45378; J2704